=== PATIENT | male | born 1990 | race Hispanic/Latino ===

== ENCOUNTER → 2024-03-31 | Outpatient (CLI) | payer OTHER ==
[2024-04-05 14:26] LABS: Iron 103 ug/dL (65-175); Iron Binding Capacity, Total 246 mcg/dL (261-462)
[2024-04-06 09:19] LABS: Hematocrit 31.5 % (38.8-50.0); Mean Corpuscular HGB CONC 34.9 g/dL (32.0-36.0); Mean Corpuscular Hemoglobin 29.1 pg (27.0-33.0); Mean Corpuscular Volume 83.3 fL (81.2-95.1); Platelet Count 41 10x3/uL (150-450); RBC Distribution Width 18.2 % (11.5-14.5); Red Blood Cell (RBC) Count 3.78 10x6/uL (4.32-5.72); White Blood Cell (WBC) Count 2.5 10x3/uL (3.5-10.5)
== END ==
LOC: CSHLAB 12:52
PROVIDERS: ATTEND Surgery
DX: Z01.812 Encounter for preprocedural laboratory examination (principal); I85.00 Esophageal varices without bleeding
CPT/HCPCS: 82728; 83540; 83550; 85027

== ENCOUNTER 2024-04-06 12:36 | Day surgery (SDC) | payer OTHER ==
[2024-04-05 13:34] VITALS: BMI 25.0
[2024-04-06 13:59] LABS: #Basophils 0.01 10x3/uL (0.0-0.2); #Eosinophils 0.12 10x3/uL (0.0-0.5); #Monocytes 0.34 10x3/uL (0.0-1.1); #Neutrophils 1.52 10x3/uL (1.5-8.4); %Basophils 0.4 % (0.0-2.0); %Eosinophils 4.6 % (0.0-6.0); %Monocytes 12.9 % (0.0-10.0); %Neutrophils 57.7 % (40.0-75.0); Hemoglobin 10.8 g/dL (13.5-17.5); Mean Corpuscular HGB CONC 34.8 g/dL (32.0-36.0); Mean Corpuscular Volume 83.3 fL (81.2-95.1); Platelet Count 41 10x3/uL (150-450); RBC Distribution Width 17.4 % (11.5-14.5); Red Blood Cell (RBC) Count 3.72 10x6/uL (4.32-5.72); White Blood Cell (WBC) Count 2.6 10x3/uL (3.5-10.5)
[2024-04-06 14:04] LABS: Anion Gap 12 mmol/L (10-20); BUN (Urea Nitrogen) 8 mg/dL (8.9-20.6); Calc. Creatinine Clearance 172 mL/min (70-130); Calcium 9.7 mg/dL (7.8-10.44); Carbon Dioxide 27 mmol/L (22-29); Chloride 107 mmol/L (98-107); Estimated GFR 130; Glucose 108 mg/dL (70-105); Potassium 3.7 mmol/L (3.5-5.1); Sodium 142 mmol/L (136-145)
[2024-04-06] MEDS ORDERED: PROPOFOL 40 ML ONE (14:36)
[2024-04-06] MEDS ORDERED: Lidocaine 1% PF 5 ML VIAL ONE (14:37)
== END 2024-04-06 15:45 | disposition home or self-care (01) ==
LOC: CSHSDC 12:36
PROVIDERS: ATTEND Surgery
PROC: 0DB68ZX Excision of Stomach, Via Natural or Artificial Opening Endoscopic, Diagnostic (ICD-10-PCS; principal; 2024-04-06)
DX: I85.00 Esophageal varices without bleeding (principal); K29.00 Acute gastritis without bleeding; K74.60 Unspecified cirrhosis of liver; I10 Essential (primary) hypertension; D69.6 Thrombocytopenia, unspecified; D50.9 Iron deficiency anemia, unspecified; Z79.899 Other long term (current) drug therapy
CPT/HCPCS: 36415; 80048; 85025; 88305; 88342; J2704

== ENCOUNTER 2025-01-13 08:50 | Outpatient (CLI) | payer OTHER | END 2025-01-13 08:51 | disposition home or self-care (01) | LOC: CSHDTY/OP 08:50 | PROVIDERS: ATTEND Nurse Practitioner Family | DX: Z71.3 Dietary counseling and surveillance (principal); E11.9 Type 2 diabetes mellitus without complications | CPT/HCPCS: 97802 ==